=== PATIENT | female | born 1990 | race Caucasian/White ===

== ENCOUNTER 2019-02-14 02:51 | Emergency (ER) | payer MEDICAID ==
[~2019-02-14] VITALS: Ht 165.1 cm; Wt 127.0 kg
[2019-02-14] MEDS ORDERED: LITHIUM CARBON300 MG PO (03:02)
[2019-02-14] MEDS ORDERED: ABILIFY20 MG PO (03:02)
[2019-02-14] MEDS ORDERED: OXYTROL FOR WO1 EACH TD (03:03)
[2019-02-14] MEDS ORDERED: NICODERM CQ1 EAC2 T (03:03)
== END 2019-02-14 05:08 | disposition home or self-care (01) ==
LOC: ED 02:51
DX: L50.9 Urticaria, unspecified (principal); E11.9 Type 2 diabetes mellitus without complications; J44.9 Chronic obstructive pulmonary disease, unspecified; Z91.030 Bee allergy status; Z88.1 Allergy status to other antibiotic agents; Z91.013 Allergy to seafood; Z88.6 Allergy status to analgesic agent; Z88.8 Allergy status to other drugs, medicaments and biological substances; Z88.2 Allergy status to sulfonamides; Z79.899 Other long term (current) drug therapy